=== PATIENT | male | born 2000 | race Caucasian/White ===

== ENCOUNTER 2020-03-12 16:45 | Day surgery (SDC) | payer BC, OTHER ==
[2020-03-12] MEDS ORDERED: Ondansetron 4 MG/2 ML SDV IVPUSH ONE (18:01)
[2020-03-12] MEDS ORDERED: Iopamidol 612 MG/ML 100 ML Bottle IVPUSH ONE (18:04)
[2020-03-12] MEDS ORDERED: Sodium Chloride 0.9% 10 ML Syringe FLUSH PRN (18:04)
[2020-03-12] MEDS ORDERED: Diatrizoate Meglumine/Diatrizoate Sodium 37% 120 ML Bottle PO ONE (18:04)
--- NOTE | 2020-03-12 18:08 | EDM.PDOC ---
ED HPI GENERAL MEDICAL PROBLEM - General Chief Complaint: Abdominal Pain Stated Complaint: ABDOMINAL PAIN Time Seen by Provider: 03/12/20 17:39 Source of Information: Reports: Patient History Limitations: Reports: No Limitations - History of Present Illness INITIAL COMMENTS - FREE TEXT/NARRATIVE: Mr. Vega is a very pleasant 19-year-old man with a past medical history significant for ADHD and untreated anxiety, who now presents to the ED stating that he developed midline abdominal pain, extending from his epigastrium down to his bladder, this past 03/10/2020. He describes the character of the pain as sharp. He states that it waxes and wanes. He feels somewhat better if he lies in a prone position or if he sips water, otherwise, he has not identified any modifiers. He had some nausea and vomiting just prior to coming to the ED, otherwise, he has not had any urine this event. He had a small amount of some watery non-bloody diarrhea. No recent fever. He states that he feels pressure on his bladder, but denies dysuria or urinary frequency. No prior similar symptoms. Here in the ED, the patient is found to be hemodynamically stable, afebrile, saturating 97% on room air. Other than the abdominal pain with nausea, vomiting, and slight diarrhea, the patient denies recent fever, chills, sore throat, ear pain, nasal or sinus congestion, cough, dyspnea, chest pain, palpitations, constipation, recent weight gain or weight loss, recent bloody bowel movements or black bowel movements, recent joint aches, headaches, or rashes. The patient states that he last ate last night. The patient's PCP is Dr. Alton Story. - Related Data Allergies Allergy/AdvReac Type Severity Reaction Status Date / Time No Known Allergies Allergy Verified 03/12/20 18:11 Past Medical History Psychiatric History: Reports: ADHD, Anxiety (untreated) - Past Surgical History HEENT Surgical History: Reports: Oral Surgery (wisdom teeth extraction) Social & Family History - Tobacco Use Smoking Status *Q: Never Smoker Tobacco Use Within Last Twelve Months: Smokeless Tobacco (chews once every 2 months), Vaping (nicotine) - Alcohol Use Alcohol Use History: No - Recreational Drug Use Recreational Drug Use: No - Living Situation & Occupation Living situation: Reports: Single, with Family 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 ED EXAM, GI/ABD - Physical Exam Exam: See Below Exam Limited By: No Limitations General Appearance: Alert, WD/WN, No Apparent Distress Eyes: Bilateral: Normal Appearance, EOMI Ears: Normal External Exam, Hearing Grossly Normal Nose: Normal Inspection Throat/Mouth: Normal Inspection, Normal Lips, Normal Voice, No Airway Compromise Head: Atraumatic, Normocephalic Neck: Normal Inspection, Full Range of Motion Respiratory/Chest: No Respiratory Distress, Lungs Clear, Normal Breath Sounds, No Accessory Muscle Use Cardiovascular: Normal Peripheral Pulses, Regular Rate, Rhythm, No Edema, No Gallop, No JVD, No Murmur, No Rub GI/Abdominal Exam: Normal Bowel Sounds (active!), Soft, No Organomegaly, No Distention, No Abnormal Bruit, No Mass, Tender (Right lower quadrant only, although Rovsing sign present. Nontender elsewhere. Obturator sign absent. Psoas sign and heel drop sign present.) (Male) Exam: Deferred Rectal (Males) Exam: Deferred Back Exam: Normal Inspection, Full Range of Motion. No: CVA Tenderness (L), CVA Tenderness (R) Extremities: Normal Inspection, Normal Range of Motion, No Pedal Edema, Normal Capillary Refill Neurological: Alert, Oriented, Normal Cognition, No Motor/Sensory Deficits Psychiatric: Normal Affect Skin Exam: Warm, Dry, Intact, Normal Color, No Rash Course - Vital Signs Last Recorded V/S: Last Vital Signs Temp 37.2 C 03/12/20 17:02 Pulse 72 03/12/20 17:02 Resp 16 03/12/20 17:02 BP 134/71 03/12/20 17:02 Pulse Ox 97 03/12/20 17:02 - Orders/Labs/Meds Orders: Active Orders 24 hr Category Date Time Status Patient Status [ADT] Routine ADT 03/12/20 20:27 Active Communication Order [RC] ROUTINE Care 03/12/20 22:23 Active Cooling Warming Measures [RC] ASDIRECTED Care 03/12/20 22:23 Active Notify Provider [RC] ASDIRECTED Care 03/12/20 22:24 Active Oxygen Therapy [RC] ASDIRECTED Care 03/12/20 22:23 Active Pulse Oximetry [RC] ASDIRECTED Care 03/12/20 22:23 Active Vital Signs [RC] Q15M Care 03/12/20 22:23 Active HYDROmorphone [Dilaudid] Med 03/12/20 22:26 Active 0.5 mg IVPUSH ONETIME PRN Midazolam [Versed 1 MG/ML] Med 03/12/20 22:25 Active 2 mg IVPUSH ONETIME PRN Phenylephrine [Ralf-Synephrine] 1 mg Med 03/12/20 22:30 Active Sodium Chloride 0.9% [Normal Saline] 10 ml IV TITRATE Sodium Chloride 0.9% [Normal Saline] 1,000 ml Med 03/12/20 18:15 Active IV ASDIRECTED Sodium Chloride 0.9% [Saline Flush] Med 03/12/20 18:04 Active 10 ml FLUSH ONETIME PRN diphenhydrAMINE [Benadryl] Med 03/12/20 22:25 Active 25 mg IVPUSH Q6H PRN ePHEDrine [ePHEDrine sulfate] Med 03/12/20 22:25 Active 5 mg IVPUSH ASDIRECTED PRN fentaNYL [Sublimaze] Med 03/12/20 22:25 Active 50 mcg IVPUSH Q5M PRN Schedule Procedure [COMM] Stat Oth 03/12/20 21:44 Ordered Medication Orders Diphenhydramine HCl (Benadryl) 25 mg IVPUSH Q6H PRN PRN Reason: pruritis Ephedrine Sulfate (Ephedrine Sulfate) 5 mg IVPUSH ASDIRECTED PRN PRN Reason: Hypotension Fentanyl (Sublimaze) 50 mcg IVPUSH Q5M PRN PRN Reason: Pain Hydromorphone HCl (Dilaudid) 0.5 mg IVPUSH ONETIME PRN PRN Reason: Pain Sodium Chloride (Normal Saline) 1,000 mls @ 150 mls/hr IV ASDIRECTED ELLEN Last Admin: 03/12/20 18:18 Dose: 150 mls/hr Phenylephrine HCl 1 mg/ Sodium (Chloride) 10.1 mls @ 1 mls/sec IV TITRATE ELLEN; Protocol Midazolam HCl (Versed 1 Mg/Ml) 2 mg IVPUSH ONETIME PRN PRN Reason: Sedation Sodium Chloride (Saline Flush) 10 ml FLUSH ONETIME PRN PRN Reason: Keep Vein Open Last Admin: 03/12/20 19:37 Dose: 10 ml Labs: Laboratory Tests 03/12/20 03/12/20 03/12/20 Range/Units 17:57 17:57 18:20 WBC 16.94 H (4.23-9.07) K/mm3 RBC 5.41 (4.63-6.08) M/mm3 Hgb 15.2 (13.7-17.5) gm/dl Hct 44.2 (40.1-51.0) % MCV 81.7 (79.0-92.2) fl MCH 28.1 (25.7-32.2) pg MCHC 34.4 (32.2-35.5) g/dl RDW Std Deviation 38.0 (35.1-43.9) fL Plt Count 240 (163-337) K/mm3 MPV 10.8 (9.4-12.3) fl Neutrophils % (Manual) 87 H (40-60) % Band Neutrophils % 1 (0-10) % Lymphocytes % (Manual) 5 L (20-40) % Atypical Lymphs % 0 % Monocytes % (Manual) 6 (2-10) % Eosinophils % (Manual) 0 L (0.8-7.0) % Basophils % (Manual) 1 (0.2-1.2) Platelet Estimate Adequate RBC Morph Comment Normal Sodium 138 (136-145) mEq/L Potassium 3.9 (3.5-5.1) mEq/L Chloride 99 (98-107) mEq/L Carbon Dioxide 27 (21-32) mEq/L Anion Gap 15.9 H (5-15) BUN 13 (7-18) mg/dL Creatinine 1.1 (0.7-1.3) mg/dL Est Cr Clr Drug Dosing 120.27 mL/min Estimated GFR (MDRD) > 60 (>60) mL/min BUN/Creatinine Ratio 11.8 L (14-18) Glucose 112 H (74-106) mg/dL Calcium 9.6 (8.5-10.1) mg/dL Total Bilirubin 0.9 (0.2-1.0) mg/dL AST 18 (15-37) U/L ALT 21 (16-63) U/L Alkaline Phosphatase 85 (46-116) U/L Total Protein 8.1 (6.4-8.2) g/dl Albumin 4.2 (3.4-5.0) g/dl Globulin 3.9 gm/dL Albumin/Globulin Ratio 1.1 (1-2) Lipase 34 L (73-393) U/L Urine Color Yellow (Yellow) Urine Appearance Clear (Clear) Urine pH 6.0 (5.0-8.0) Ur Specific [place] 1.025 (1.005-1.030) Urine Protein Trace H (Negative) Urine Glucose (UA) Negative (Negative) Urine Ketones 4+ H (Negative) Urine Occult Blood Negative (Negative) Urine Nitrite Negative (Negative) Urine Bilirubin 1+ H (Negative) Urine Urobilinogen 0.2 (0.2-1.0) Ur Leukocyte Esterase Negative (Negative) Urine RBC 0-5 (0-5) /hpf Urine WBC 0-5 (0-5) /hpf Ur Squamous Epith Cells 0-5 (0-5) /hpf Urine Bacteria Rare (FEW) /hpf Urine Mucus Few (FEW) /hpf SARS Virus RNA (PCR) (NEGATIVE) 03/12/20 Range/Units 20:32 WBC (4.23-9.07) K/mm3 RBC (4.63-6.08) M/mm3 Hgb (13.7-17.5) gm/dl Hct (40.1-51.0) % MCV (79.0-92.2) fl MCH (25.7-32.2) pg MCHC (32.2-35.5) g/dl RDW Std Deviation (35.1-43.9) fL Plt Count (163-337) K/mm3 MPV (9.4-12.3) fl Neutrophils % (Manual) (40-60) % Band Neutrophils % (0-10) % Lymphocytes % (Manual) (20-40) % Atypical Lymphs % % Monocytes % (Manual) (2-10) % Eosinophils % (Manual) (0.8-7.0) % Basophils % (Manual) (0.2-1.2) Platelet Estimate RBC Morph Comment Sodium (136-145) mEq/L Potassium (3.5-5.1) mEq/L Chloride (98-107) mEq/L Carbon Dioxide (21-32) mEq/L Anion Gap (5-15) BUN (7-18) mg/dL Creatinine (0.7-1.3) mg/dL Est Cr Clr Drug Dosing mL/min Estimated GFR (MDRD) (>60) mL/min BUN/Creatinine Ratio (14-18) Glucose (74-106) mg/dL Calcium (8.5-10.1) mg/dL Total Bilirubin (0.2-1.0) mg/dL AST (15-37) U/L ALT (16-63) U/L Alkaline Phosphatase (46-116) U/L Total Protein (6.4-8.2) g/dl Albumin (3.4-5.0) g/dl Globulin gm/dL Albumin/Globulin Ratio (1-2) Lipase (73-393) U/L Urine Color (Yellow) Urine Appearance (Clear) Urine pH (5.0-8.0) Ur Specific [place] (1.005-1.030) Urine Protein (Negative) Urine Glucose (UA) (Negative) Urine Ketones (Negative) Urine Occult Blood (Negative) Urine Nitrite (Negative) Urine Bilirubin (Negative) Urine Urobilinogen (0.2-1.0) Ur Leukocyte Esterase (Negative) Urine RBC (0-5) /hpf Urine WBC (0-5) /hpf Ur Squamous Epith Cells (0-5) /hpf Urine Bacteria (FEW) /hpf Urine Mucus (FEW) /hpf SARS Virus RNA (PCR) Negative (NEGATIVE) Meds: Medications Generic Name Dose Route Start Last Admin Trade Name Freq PRN Reason Stop Dose Admin Diphenhydramine HCl 25 mg 03/12/20 22:25 Benadryl IVPUSH Q6H PRN pruritis Ephedrine Sulfate 5 mg 03/12/20 22:25 Ephedrine Sulfate IVPUSH ASDIRECTED PRN Hypotension Fentanyl 50 mcg 03/12/20 22:25 Sublimaze IVPUSH Q5M PRN Pain Hydromorphone HCl 0.5 mg 03/12/20 22:26 Dilaudid IVPUSH ONETIME PRN Pain Sodium Chloride 1,000 mls @ 150 mls/hr 03/12/20 18:15 03/12/20 18:18 Normal Saline IV 150 mls/hr ASDIRECTED ELLEN Administration Phenylephrine HCl 1 mg/ Sodium 10.1 mls @ 1 mls/sec 03/12/20 22:30 Chloride IV TITRATE ELLEN Protocol Midazolam HCl 2 mg 03/12/20 22:25 Versed 1 Mg/Ml IVPUSH ONETIME PRN Sedation Sodium Chloride 10 ml 03/12/20 18:04 03/12/20 19:37 Saline Flush FLUSH 10 ml ONETIME PRN Administration Keep Vein Open Discontinued Medications Generic Name Dose Route Start Last Admin Trade Name Darvinq PRN Reason Stop Dose Admin Bupivacaine HCl/Epinephrine Bitart Confirm 03/12/20 20:56 03/12/20 21:26 Marcaine 0.5%/Epinephrine 1:200,000 Administered 03/12/20 20:57 30 ml Dose Administration 50 ml .ROUTE .STK-MED ONE Dexamethasone Confirm 03/12/20 21:04 Dexamethasone Administered 03/12/20 21:05 Dose 20 mg .ROUTE .STK-MED ONE Diatrizoate Meglum/Diatrizoate Sod 40 ml 03/12/20 18:04 03/12/20 19:38 Gastrografin 37% PO 03/12/20 18:05 40 ml ONETIME ONE Administration Fentanyl Confirm 03/12/20 21:05 Sublimaze Administered 03/12/20 21:06 Dose 250 mcg .ROUTE .STK-MED ONE Hydromorphone HCl Confirm 03/12/20 21:04 Dilaudid Administered 03/12/20 21:05 Dose 0.5 mg .ROUTE .STK-MED ONE Hydromorphone HCl Confirm 03/12/20 22:33 Dilaudid Administered 03/12/20 22:34 Dose 0.5 mg .ROUTE .STK-MED ONE Ceftriaxone Sodium 2 gm/ 100 mls @ 200 mls/hr 03/12/20 20:15 03/12/20 20:32 Sodium Chloride IV 03/12/20 20:44 200 mls/hr ONETIME STA Administration Metronidazole 500 mg/ Premix 100 mls @ 100 mls/hr 03/12/20 20:16 03/12/20 21: 09 IV 03/12/20 21:15 100 mls/hr ONETIME STA Administration Lidocaine HCl Confirm 03/12/20 21:04 Xylocaine-Mpf 1% Administered 03/12/20 21:05 Dose 6 mls @ as directed .ROUTE .STK-MED ONE Lactated Ringer's Confirm 03/12/20 21:04 Ringers, Lactated Administered 03/12/20 21:05 Dose 2,000 mls @ as directed .ROUTE .STK-MED ONE Iopamidol 100 ml 03/12/20 18:04 03/12/20 19:37 Isovue-300 (61%) IVPUSH 03/12/20 18:05 100 ml ONETIME ONE Administration Ketorolac Tromethamine Confirm 03/12/20 21:04 Toradol Administered 03/12/20 21:05 Dose 30 mg .ROUTE .STK-MED ONE Lidocaine/Epinephrine Confirm 03/12/20 20:56 03/12/20 21:26 Xylocaine 1% With Epinephrine 1:100,000 Administered 03/12/20 20:57 30 ml Dose Administration 40 ml .ROUTE .STK-MED ONE Midazolam HCl Confirm 03/12/20 21:05 Versed 1 Mg/Ml Administered 03/12/20 21:06 Dose 2 mg .ROUTE .STK-MED ONE Ondansetron HCl 4 mg 03/12/20 18:01 03/12/20 18:18 Zofran IVPUSH 03/12/20 18:02 4 mg ONETIME ONE Administration Ondansetron HCl Confirm 03/12/20 21:04 Zofran Administered 03/12/20 21:05 Dose 4 mg .ROUTE .STK-MED ONE Propofol Confirm 03/12/20 21:04 Diprivan 20 Ml Administered 03/12/20 21:05 Dose 200 mg .ROUTE .STK-MED ONE Propofol Confirm 03/12/20 22:13 Diprivan 20 Ml Administered 03/12/20 22:14 Dose 200 mg .ROUTE .STK-MED ONE Rocuronium [place] Confirm 03/12/20 21:04 Zemuron Administered 03/12/20 21:05 Dose 50 mg .ROUTE .STK-MED ONE - Re-Assessments/Exams Free Text/Narrative Re-Assessment/Exam: 03/12/20 18:02 As above, the patient developed midline abdominal pain 2 days ago, and on examination, he is tender only in the right lower quadrant and nontender elsewhere, although Rovsing sign is present. Obturator sign is absent, although psoas sign and heel drop signs are present. His presentation is most concerning for appendicitis, although other etiologies, such as UTI, ureterolith , pancreatitis, epiploic appendagitis, or mesenteric adenitis are all possibilities. Acute cholecystitis is highly unlikely, given his history and exam. I have ordered a work-up that includes blood work, a urinalysis, and a CT of the abdomen and pelvis with oral and IV contrast. In the meantime, the patient will be given IV fluid and IV Zofran. He declined an offer for pain medication. 03/12/20 19:19 The patient CBC is remarkable for a WBC count elevated at 16.94, but with only 1 % bandemia. The remainder of his CBC is unremarkable. His CMP is remarkable for an anion gap slightly elevated at 15.9, but with a bicarbonate normal at 27. His blood glucose is slightly elevated at 112, with the remainder of his CMP being unremarkable. His lipase is within normal limits at 34. His urinalysis is remarkable for 4+ ketones, occult blood negative with 0-5 RBCs , leukocyte esterase negative with 0-5 WBCs, nitrite negative with rare bacteria , and 0-5 squamous epithelial cells. 03/12/20 20:01 CT of the abdomen and pelvis with oral and IV contrast as read by Dr. Hope as: 1. Findings as described above are compatible with appendicitis. 03/12/20 20:[address] Graves at 20:11. She would like to take the patient to the OR around 21:30, and asked that we contact the OR team and anesthesia. In the meantime, she would like me to give the patient Rocephin 2 g and metronidazole 500 mg. Departure - Departure Time of Disposition: 20:16 Disposition: DC/Tfer to [facility] Condition: Good Clinical Impression: Acute appendicitis Qualifiers: Acute appendicitis type: with localized peritonitis Appendicitis gangrene presence: unspecified whether gangrene present Appendicitis perforation presence : unspecified whether perforation present Appendicitis abscess presence: unspecified whether abscess present Qualified Code(s): K35.30 - Acute appendicitis with localized peritonitis, without perforation or gangrene - Discharge Information *PRESCRIPTION DRUG MONITORING PROGRAM REVIEWED*: Not Applicable *COPY OF PRESCRIPTION DRUG MONITORING REPORT IN PATIENT [place]: Not Applicable Sepsis Event Note - Evaluation Sepsis Screening Result: No Definite Risk - Focused Exam Vital Signs: Vital Signs Temp Pulse Resp BP Pulse Ox 03/12/20 17:02 37.2 C 72 16 134/71 97 Date Exam was Performed: 03/12/20 Time Exam was Performed: 22:41 - My Orders Last 24 Hours: My Active Orders 03/12/20 18:04 Sodium Chloride 0.9% [Saline Flush] 10 ml FLUSH ONETIME PRN 03/12/20 18:15 Sodium Chloride 0.9% [Normal Saline] 1,000 ml IV ASDIRECTED 03/12/20 20:27 Patient Status [ADT] Routine - Assessment/Plan Last 24 Hours: My Active Orders 03/12/20 18:04 Sodium Chloride 0.9% [Saline Flush] 10 ml FLUSH ONETIME PRN 03/12/20 18:15 Sodium Chloride 0.9% [Normal Saline] 1,000 ml IV ASDIRECTED 03/12/20 20:27 Patient Status [ADT] Routine
[2020-03-12] MEDS ORDERED: Sodium Chloride 0.9% 1,000 ML IV SCH (18:15)
--- NOTE | 2020-03-12 19:58 | CT ---
CT abdomen and pelvis Technique: Multiple axial sections were obtained from above the dome of the diaphragm inferiorly through the pubic symphysis. Intravenous contrast and oral contrast was utilized. Findings: Appendix is enlarged with surrounding inflammatory change compatible with appendicitis. Other findings: Visualized lung bases show nothing acute. Liver contains no focal abnormality. Spleen appears within normal limits. Adrenal glands show no nodule. Kidneys show symmetric contrast enhancement without hydronephrosis or mass. Pancreas is within normal limits. Gallbladder contains no calcified gallstones. Aorta shows no aneurysm. No retroperitoneal adenopathy or mesenteric abnormalities are seen. Pelvis shows no evidence of free fluid. No additional pelvic abnormality is noted. Impression: 1. Findings as described above are compatible with appendicitis. Diagnostic code #5 This report was dictated in MDT
[2020-03-12] MEDS ORDERED: cefTRIAXone 2 GM in Sodium Chloride 0.9% 100 ML IV STA (20:15)
[2020-03-12] MEDS ORDERED: metroNIDAZOLE/Normal Saline 500 MG in Premix Bag 1 BAG IV STA (20:16)
--- NOTE | 2020-03-12 20:48 | PCM.PREANE ---
Preanesthetic Assessment - Anesthesia/Transfusion/Family Hx Anesthesia History: Prior Anesthesia Without Reaction Family History of Anesthesia Reaction: No Transfusion History: No Prior Transfusion(s) Intubation History: Unknown - Review of Systems General: No Symptoms, Fatigue Pulmonary: No Symptoms Cardiovascular: No Symptoms Gastrointestinal: No Symptoms, Abdominal Pain (610), Decreased Appetite, Nausea , Vomiting Neurological: No Symptoms (ADHD) Other: Reports: None, Anxiety - Physical Assessment NPO Status Date: 03/12/20 NPO Status Time: 19:38 Vital Signs: Last Vital Signs Temp 37.2 C 03/12/20 17:02 Pulse 72 03/12/20 17:02 Resp 16 03/12/20 17:02 BP 134/71 03/12/20 17:02 Pulse Ox 97 03/12/20 17:02 Height: 1.85 m Weight: 79.379 kg ASA Class: 1E Mental Status: Alert & Oriented x3 Airway Class: Mallampati = 2 Dentition: Reports: Normal Dentition, Caries Thyro-Mental Finger Breadths: 3 Mouth Opening Finger Breadths: 3 ROM/Head Extension: Full Lungs: Clear to Auscultation, Normal Respiratory Effort Cardiovascular: Regular Rate, Regular Rhythm, No Murmurs - Lab Values: Laboratory Last Values WBC 16.94 K/mm3 (4.23-9.07) H 03/12/20 17:57 RBC 5.41 M/mm3 (4.63-6.08) 03/12/20 17:57 Hgb 15.2 gm/dl (13.7-17.5) 03/12/20 17:57 Hct 44.2 % (40.1-51.0) 03/12/20 17:57 MCV 81.7 fl (79.0-92.2) 03/12/20 17:57 MCH 28.1 pg (25.7-32.2) 03/12/20 17:57 MCHC 34.4 g/dl (32.2-35.5) 03/12/20 17:57 RDW Std Deviation 38.0 fL (35.1-43.9) 03/12/20 17:57 Plt Count 240 K/mm3 (163-337) 03/12/20 17:57 MPV 10.8 fl (9.4-12.3) 03/12/20 17:57 Neutrophils % (Manual) 87 % (40-60) H 03/12/20 17:57 Band Neutrophils % 1 % (0-10) 03/12/20 17:57 Lymphocytes % (Manual) 5 % (20-40) L 03/12/20 17:57 Atypical Lymphs % 0 % 03/12/20 17:57 Monocytes % (Manual) 6 % (2-10) 03/12/20 17:57 Eosinophils % (Manual) 0 % (0.8-7.0) L 03/12/20 17:57 Basophils % (Manual) 1 (0.2-1.2) 03/12/20 17:57 Platelet Estimate Adequate 03/12/20 17:57 RBC Morph Comment Normal 03/12/20 17:57 Sodium 138 mEq/L (136-145) 03/12/20 17:57 Potassium 3.9 mEq/L (3.5-5.1) 03/12/20 17:57 Chloride 99 mEq/L (98-107) 03/12/20 17:57 Carbon Dioxide 27 mEq/L (21-32) 03/12/20 17:57 Anion Gap 15.9 (5-15) H 03/12/20 17:57 BUN 13 mg/dL (7-18) 03/12/20 17:57 Creatinine 1.1 mg/dL (0.7-1.3) 03/12/20 17:57 Est Cr Clr Drug Dosing 120.27 mL/min 03/12/20 17:57 Estimated GFR (MDRD) > 60 mL/min (>60) 03/12/20 17:57 BUN/Creatinine Ratio 11.8 (14-18) L 03/12/20 17:57 Glucose 112 mg/dL (74-106) H 03/12/20 17:57 Calcium 9.6 mg/dL (8.5-10.1) 03/12/20 17:57 Total Bilirubin 0.9 mg/dL (0.2-1.0) 03/12/20 17:57 AST 18 U/L (15-37) 03/12/20 17:57 ALT 21 U/L (16-63) 03/12/20 17:57 Alkaline Phosphatase 85 U/L (46-116) 03/12/20 17:57 Total Protein 8.1 g/dl (6.4-8.2) 03/12/20 17:57 Albumin 4.2 g/dl (3.4-5.0) 03/12/20 17:57 Globulin 3.9 gm/dL 03/12/20 17:57 Albumin/Globulin Ratio 1.1 (1-2) 03/12/20 17:57 Lipase 34 U/L (73-393) L 03/12/20 17:57 Urine Color Yellow (Yellow) 03/12/20 18:20 Urine Appearance Clear (Clear) 03/12/20 18:20 Urine pH 6.0 (5.0-8.0) 03/12/20 18:20 Ur Specific [place] 1.025 (1.005-1.030) 03/12/20 18:20 Urine Protein Trace (Negative) H 03/12/20 18:20 Urine Glucose (UA) Negative (Negative) 03/12/20 18:20 Urine Ketones 4+ (Negative) H 03/12/20 18:20 Urine Occult Blood Negative (Negative) 03/12/20 18:20 Urine Nitrite Negative (Negative) 03/12/20 18:20 Urine Bilirubin 1+ (Negative) H 03/12/20 18:20 Urine Urobilinogen 0.2 (0.2-1.0) 03/12/20 18:20 Ur Leukocyte Esterase Negative (Negative) 03/12/20 18:20 Urine RBC 0-5 /hpf (0-5) 03/12/20 18:20 Urine WBC 0-5 /hpf (0-5) 03/12/20 18:20 Ur Squamous Epith Cells 0-5 /hpf (0-5) 03/12/20 18:20 Urine Bacteria Rare /hpf (FEW) 03/12/20 18:20 Urine Mucus Few /hpf (FEW) 03/12/20 18:20 Above labs reviewed and noted and within acceptable ranges to proceed with procedure. (Awaiting COVID results) - Allergies Allergies/Adverse Reactions: Allergies Allergy/AdvReac Type Severity Reaction Status Date / Time No Known Allergies Allergy Verified 03/12/20 18:11 - Anesthesia Plan Pre-Op Medication Ordered: None - Acknowledgements Anesthesia Type Planned: General Anesthesia Pt an Appropriate Candidate for the Planned Anesthesia: Yes Alternatives and Risks of Anesthesia Discussed w Pt/Guardian: Yes Pt/Guardian Understands and Agrees with Anesthesia Plan: Yes PreAnesthesia Questionnaire Psychiatric History: Reports: ADHD, Anxiety (untreated) - Past Surgical History HEENT Surgical History: Reports: Oral Surgery (wisdom teeth extraction) - SUBSTANCE USE Smoking Status *Q: Never Smoker Tobacco Use Within Last Twelve Months: Smokeless Tobacco (chews once every 2 months), Vaping (nicotine) Recreational Drug Use History: No - CURRENT (IN HOUSE) MEDS Current Meds: Current Medications Sodium Chloride (Normal Saline) 1,000 mls @ 150 mls/hr IV ASDIRECTED ELLEN Last Admin: 03/12/20 18:18 Dose: 150 mls/hr Metronidazole 500 mg/ Premix 100 mls @ 100 mls/hr IV ONETIME STA Stop: 03/12/20 21:15 Sodium Chloride (Saline Flush) 10 ml FLUSH ONETIME PRN PRN Reason: Keep Vein Open Last Admin: 03/12/20 19:37 Dose: 10 ml Discontinued Medications Diatrizoate Meglum/Diatrizoate Sod (Gastrografin 37%) 40 ml PO ONETIME ONE Stop: 03/12/20 18:05 Last Admin: 03/12/20 19:38 Dose: 40 ml Ceftriaxone Sodium 2 gm/ (Sodium Chloride) 100 mls @ 200 mls/hr IV ONETIME STA Stop: 03/12/20 20:44 Last Admin: 03/12/20 20:32 Dose: 200 mls/hr Iopamidol (Isovue-300 (61%)) 100 ml IVPUSH ONETIME ONE Stop: 03/12/20 18:05 Last Admin: 03/12/20 19:37 Dose: 100 ml Ondansetron HCl (Zofran) 4 mg IVPUSH ONETIME ONE Stop: 03/12/20 18:02 Last Admin: 03/12/20 18:18 Dose: 4 mg
[2020-03-12] MEDS ORDERED: Succinylcholine/Sod PF 100 MG/5 ML SYRINGE IV ONE (21:04)
[2020-03-12] MEDS ORDERED: HYDROmorphone 0.5 MG/0.5 ML Syringe ONE ×2 (21:04→22:33)
[2020-03-12] MEDS ORDERED: Rocuronium 50 MG/5 ML Vial ONE (21:04)
[2020-03-12] MEDS ORDERED: Dexamethasone 4 MG/ML 5 ML MDV ONE (21:04)
[2020-03-12] MEDS ORDERED: Propofol 200 MG/20 ML SDV ONE ×2 (21:04→22:13)
[2020-03-12] MEDS ORDERED: Lidocaine 1% 6 ML ONE (21:04)
[2020-03-12] MEDS ORDERED: Ketorolac 30 MG/ML SDV ONE (21:04)
[2020-03-12] MEDS ORDERED: Ondansetron 4 MG/2 ML SDV ONE (21:04)
[2020-03-12] MEDS ORDERED: Lactated Ringers 2,000 ML ONE (21:04)
[2020-03-12] MEDS ORDERED: fentaNYL 250 MCG/5 ML SDV ONE (21:05)
[2020-03-12] MEDS ORDERED: Midazolam 1 MG/ML 2 ML SDV ONE (21:05)
[2020-03-12] MEDS: Bupivacaine 0.5%/EPINEPHrine 1:200,000 50 ML MDV ONE ×2 (21:26→22:42)
[2020-03-12] MEDS: Lidocaine 1% with EPINEPHrine 1:100,000 20 ML MDV ONE ×2 (21:26→22:42)
--- NOTE | 2020-03-12 22:05 | PCM.HP.2 ---
H&P History of Present Illness - General Date of Service: 03/12/20 Admit Problem/Dx: Admission Diagnosis/Problem Admission Diagnosis/Problem Appendicitis Source of Information: Patient, Provider History Limitations: Reports: No Limitations - History of Present Illness Initial Comments - Free Text/Narative: The patient is a 19 y/o gentleman who presents with a 2 day history of abdominal pain that started in the epigastrium and radiated to the suprapubic area. He has had some nausea with one episode of emesis today. He has not eaten for fear of the pain. He started having diarrhea today. He denies any fever. No prior occurrence. - Related Data Allergies/Adverse Reactions: Allergies Allergy/AdvReac Type Severity Reaction Status Date / Time No Known Allergies Allergy Verified 03/12/20 18:11 Past Medical History Psychiatric History: Reports: ADHD, Anxiety (untreated) - Past Surgical History HEENT Surgical History: Reports: Oral Surgery (wisdom teeth extraction) Social & Family History - Family History Endocrine/Metabolic: Reports: Diabetes, type II - Tobacco Use Smoking Status *Q: Never Smoker - Recreational Drug Use Recreational Drug Use: No - Living Situation & Occupation Living situation: Reports: Single, with Family 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[employer]) H&P Review of Systems - Review of Systems: Review Of Systems: See Below General: Reports: No Symptoms HEENT: Reports: No Symptoms Pulmonary: Reports: No Symptoms Cardiovascular: Reports: No Symptoms Gastrointestinal: Reports: Abdominal Pain, Diarrhea Genitourinary: Reports: No Symptoms Musculoskeletal: Reports: No Symptoms Skin: Reports: No Symptoms Neurological: Reports: No Symptoms Hematologic/Lymphatic: Reports: No Symptoms Exam - Exam Exam: See Below - Vital Signs Vital Signs: Last Vital Signs Temp 37.2 C 03/12/20 17:02 Pulse 72 03/12/20 17:02 Resp 16 03/12/20 17:02 BP 134/71 03/12/20 17:02 Pulse Ox 97 03/12/20 17:02 Weight: 79.379 kg - Exam Quality Assessment: No: Supplemental Oxygen General: Alert, Oriented HEENT: Conjunctiva Clear, EOMI Neck: Supple Lungs: Normal Respiratory Effort Cardiovascular: Regular Rate, Regular Rhythm GI/Abdominal Exam: Soft, Rebound (in RLQ), Tender (in BLQ) Neurological: Cranial Nerves Intact Neuro Extensive - Mental Status: Oriented x3, Normal Mood/Affect - Patient Data Lab Results Last 24 hrs: Laboratory Results - last 24 hr 03/12/20 03/12/20 03/12/20 Range/Units 17:57 17:57 18:20 WBC 16.94 H (4.23-9.07) K/mm3 RBC 5.41 (4.63-6.08) M/mm3 Hgb 15.2 (13.7-17.5) gm/dl Hct 44.2 (40.1-51.0) % MCV 81.7 (79.0-92.2) fl MCH 28.1 (25.7-32.2) pg MCHC 34.4 (32.2-35.5) g/dl RDW Std Deviation 38.0 (35.1-43.9) fL Plt Count 240 (163-337) K/mm3 MPV 10.8 (9.4-12.3) fl Neutrophils % (Manual) 87 H (40-60) % Band Neutrophils % 1 (0-10) % Lymphocytes % (Manual) 5 L (20-40) % Atypical Lymphs % 0 % Monocytes % (Manual) 6 (2-10) % Eosinophils % (Manual) 0 L (0.8-7.0) % Basophils % (Manual) 1 (0.2-1.2) Platelet Estimate Adequate RBC Morph Comment Normal Sodium 138 (136-145) mEq/L Potassium 3.9 (3.5-5.1) mEq/L Chloride 99 (98-107) mEq/L Carbon Dioxide 27 (21-32) mEq/L Anion Gap 15.9 H (5-15) BUN 13 (7-18) mg/dL Creatinine 1.1 (0.7-1.3) mg/dL Est Cr Clr Drug Dosing 120.27 mL/min Estimated GFR (MDRD) > 60 (>60) mL/min BUN/Creatinine Ratio 11.8 L (14-18) Glucose 112 H (74-106) mg/dL Calcium 9.6 (8.5-10.1) mg/dL Total Bilirubin 0.9 (0.2-1.0) mg/dL AST 18 (15-37) U/L ALT 21 (16-63) U/L Alkaline Phosphatase 85 (46-116) U/L Total Protein 8.1 (6.4-8.2) g/dl Albumin 4.2 (3.4-5.0) g/dl Globulin 3.9 gm/dL Albumin/Globulin Ratio 1.1 (1-2) Lipase 34 L (73-393) U/L Urine Color Yellow (Yellow) Urine Appearance Clear (Clear) Urine pH 6.0 (5.0-8.0) Ur Specific [place] 1.025 (1.005-1.030) Urine Protein Trace H (Negative) Urine Glucose (UA) Negative (Negative) Urine Ketones 4+ H (Negative) Urine Occult Blood Negative (Negative) Urine Nitrite Negative (Negative) Urine Bilirubin 1+ H (Negative) Urine Urobilinogen 0.2 (0.2-1.0) Ur Leukocyte Esterase Negative (Negative) Urine RBC 0-5 (0-5) /hpf Urine WBC 0-5 (0-5) /hpf Ur Squamous Epith Cells 0-5 (0-5) /hpf Urine Bacteria Rare (FEW) /hpf Urine Mucus Few (FEW) /hpf Result Diagrams: 03/12/20 17:57 03/12/20 17:57 Sepsis Event Note - Evaluation Sepsis Screening Result: No Definite Risk - Focused Exam Vital Signs: Vital Signs Temp Pulse Resp BP Pulse Ox 03/12/20 17:02 37.2 C 72 16 134/71 97 Date Exam was Performed: 03/12/20 Time Exam was Performed: 23:27 *Q Meaningful Use (ADM) - VTE Risk Assess *Q Each Risk Factor Represents 1 Point: Minor Surgery Planned Total Score 1 Point Risk Factors: 1 - Problem List (1) Acute appendicitis SNOMED Code(s): 21022656 ICD Code: K35.80 - UNSPECIFIED ACUTE APPENDICITIS Status: Acute Current Visit: Yes Qualifiers: Acute appendicitis type: with localized peritonitis Appendicitis gangrene presence: unspecified whether gangrene present Appendicitis perforation presence: unspecified whether perforation present Appendicitis abscess presence: unspecified whether abscess present Qualified Code(s): K35.30 - Acute appendicitis with localized peritonitis, without perforation or gangrene Problem List Initiated/Reviewed/Updated: Yes Orders Last 24hrs: Active Orders 24 hr Category Date Time Status Patient Status [ADT] Routine ADT 03/12/20 20:27 Active CORONAVIRUS COVID-19 DEEPAK [MOLEC] Stat Lab 03/12/20 20:32 Received Sodium Chloride 0.9% [Normal Saline] 1,000 ml Med 03/12/20 18:15 Active IV ASDIRECTED Sodium Chloride 0.9% [Saline Flush] Med 03/12/20 18:04 Active 10 ml FLUSH ONETIME PRN Schedule Procedure [COMM] Stat Oth 03/12/20 21:44 Ordered Medication Orders Sodium Chloride (Normal Saline) 1,000 mls @ 150 mls/hr IV ASDIRECTED ELLEN Last Admin: 03/12/20 18:18 Dose: 150 mls/hr Sodium Chloride (Saline Flush) 10 ml FLUSH ONETIME PRN PRN Reason: Keep Vein Open Last Admin: 03/12/20 19:37 Dose: 10 ml Assessment/Plan Comment:: 19 y/o gentleman with acute appendicitis. - plan for laparoscopic appendectomy, possible open. Risks of infection, bleeding, bowel injury, and staple line failure discussed and his written consent was obtained. - IV ceftriaxone and metronidazole - NPO - IVF resuscitation - will determine need for inpatient stay based on intraoperative findings. Ainsley Montejo MD General surgery
[2020-03-12] MEDS ORDERED: fentaNYL 100 MCG/2 ML SDV IVPUSH PRN (22:25)
[2020-03-12] MEDS ORDERED: ePHEDrine 50 MG/ML SDV IVPUSH PRN (22:25)
[2020-03-12] MEDS ORDERED: diphenhydrAMINE 50 MG/ML SDV IVPUSH PRN (22:25)
[2020-03-12] MEDS ORDERED: Midazolam 1 MG/ML 2 ML SDV IVPUSH PRN (22:25)
[2020-03-12] MEDS ORDERED: HYDROmorphone 0.5 MG/0.5 ML Syringe IVPUSH PRN (22:26)
[2020-03-12] MEDS ORDERED: Phenylephrine 1 MG in Sodium Chloride 0.9% 10 ML IV SCH (22:30)
[2020-03-12] MEDS ORDERED: fentaNYL 100 MCG/2 ML SDV ONE (22:41)
--- NOTE | 2020-03-12 23:29 | PCM.OPNOTE ---
- General Post-Op/Procedure Note Date of Surgery/Procedure: 03/12/20 Operative Procedure(s): laparoscopic appendectomy Findings: acute appendicitis, not ruptured Pre Op Diagnosis: acute appendicitis Post-Op Diagnosis: same Anesthesia Technique: General ET Tube Primary Surgeon: Ainsley Montejo Anesthesia Provider: Cait Jean Pathology: appendix Fluid Replacement, Intraop: 1,000 Output, Urine Amount: 0 EBL in mLs: 5 Complications: none apparent Condition: Good
--- NOTE | 2020-03-12 23:35 | PCM.PRNOTE ---
- Free Text/Narrative Note: Operative Report Date of surgery: March 12, 2020 Preoperative diagnosis: acute appendicitis. Postoperative diagnosis: same Procedure performed: laparoscopic appendectomy Surgeon: Dr. Ainsley Montejo Anesthesia: General Motor Grader Operator: Cait Jean CRNA Estimated blood loss: 5 mL IV fluids: 1000 mL Urine output: 0 Drains and lines: None Findings: Acute appendicitis, not perforated. Murky fluid in the pelvis. The patient had an indirect left inguinal hernia. Pathology: Appendix Indications for procedure: The patient is a 19-year-old gentleman who presented to the emergency department with abdominal pain of 3 days duration. He had lab work Debbi and CT work-up revealing findings of acute appendicitis. He was consented for a laparoscopic appendectomy with possible conversion to open. We discussed risks of bleeding, infection, damage to surrounding bowel, and possible staple line failure. His written consent was obtained. Description of procedure: The patient was taken back to the operating room and placed in supine position on the operating table. SCD boots were in place and functional prior to the start of the procedure. Preoperative antibiotics were administered: 2 g ceftriaxone and metronidazole 500 mg IV. The patient had successful induction of general anesthesia and was intubated without difficulty. Pt was then prepped and draped in standard surgical fashion and a timeout was performed. We began by making a 15 mm incision in the infraumbilical skin and deepened down to level of the fascia which was then grasped and incised sharply. We entered the peritoneum and then placed stay sutures of 0 Vicryl on the fascial edges. A 12 mm Enciso port was then placed into the umbilicus and the balloon was inflated. The abdomen was insufflated to 15 mmHg a 5 mm camera was inserted. There was no evidence of any injury created from entry into the abdomen. A TA P block was performed using mixed 1% lidocaine with epinephrine and 0.5% bupivacaine with epinephrine . We then proceeded to place a 5 mm port under direct visualization in the suprapubic midline and an additional 5mm port in the left lower quadrant. The patient was then positioned in Trendelenburg with right side elevated and we proceeded to mobilize the appendix. The appendix was adherent down in the pelvis to the right lateral pelvic sidewall.. There was a moderate amount of murky fluid in the abdomen, which was suctioned. The appendix was then grasped and with blunt dissection was brought into the surgical field. The mesoappendix dissected from the appendix. The appendix was then taken with a tissue staple load. The mesoappendix was then taken with a vascular staple load. The specimen was in place in the Endo Catch bag. We then inspected and suctioned up any blood in the area. There was no active bleeding at the end of this case. The abdomen was then desufflated and the umbilical fascia closed with 0 Vicryl sutures and the stay sutures were tied, effectively closing the umbilical port site. The skin was then reapproximated at all port sites using a 4-0 Monocryl subcutaneous stitch and covered with Dermabond surgical glue. The patient tolerated the procedure. He was extubated and transported to the PACU in stable condition. All sponge and needle counts were correct. I was present and scrubbed for the entirety of the procedure. Ainsley Montejo MD General Surgery
--- NOTE | 2020-03-12 23:47 | PCM.POSTAN ---
POST ANESTHESIA ASSESSMENT - MENTAL STATUS Mental Status: Alert - VITAL SIGNS Vital Signs: Last Vital Signs Temp 100.2 03/12/202333 Pulse 87 03/12/204 Resp 11 03/12/202333 BP 169/81 03/12/202333 Pulse Ox 99% 03/12/202333 - RESPIRATORY Respiratory Status: Respiratory Rate WNL, Airway Patent, O2 Saturation Stable, Supplemental Oxygen - CARDIOVASCULAR CV Status: Pulse Rate WNL, Blood Pressure Stable - GASTROINTESTINAL GI Status: No Symptoms - POST OP HYDRATION Hydration Status: Adequate & Stable
--- NOTE | 2020-03-12 23:48 | PCM48HPAN ---
Post Anesthesia Note - EVALUATION WITHIN 48HRS OF ANESTHETIC Vital Signs in Normal Range: Yes Patient Participated in Evaluation: Yes Respiratory Function Stable: Yes Airway Patent: Yes Cardiovascular Function Stable: Yes Hydration Status Stable: Yes Pain Control Satisfactory: Yes Nausea and Vomiting Control Satisfactory: Yes Mental Status Recovered: Yes Vital Signs: Last Vital Signs Temp 37.2 C 03/12/20 17:02 Pulse 72 03/12/20 17:02 Resp 16 03/12/20 17:02 BP 134/71 03/12/20 17:02 Pulse Ox 97 03/12/20 17:02
[2020-03-13] MEDS ORDERED: Acetaminophen/HYDROcodone 325-5 MG Tab PO ONE (00:43)
== END 2020-03-13 07:21 | disposition home or self-care (01) ==
LOC: JD.ED 16:45 → JD.SDS 20:34 → JD.MS 03-13 02:44 → JD.SDS 03-13 07:21
PROVIDERS: ATTEND Surgery
DX: K35.33 Acute appendicitis with perforation, localized peritonitis, and gangrene, with abscess (principal); Z20.828 Contact with and (suspected) exposure to other viral communicable diseases; E11.9 Type 2 diabetes mellitus without complications; F17.290 Nicotine dependence, other tobacco product, uncomplicated
CPT/HCPCS: 36415; 44970; 74177; 80053; 81001; 83690; 85007; 85027; 87635; 96361; 96365; 96367; 96375; 99285; J0330; J0696; J1100; J1170; J1885; J2001; J2250; J2405; J2704; J2710; J3010; J3490; J7030; J7050; J7120; Q9963; Q9967; 00840; 99283; U0002